=== PATIENT | male | born 1975 | race American Indian/Alaskan Native ===

== ENCOUNTER 2017-10-15 21:15 | Emergency (ER) | payer SELFPAY ==
[2017-10-15] MEDS ORDERED: NACL 0.9% 1000 ML 1,000 ML IV ONE (21:37)
--- NOTE | 2017-10-15 21:39 | Emergency Department Report ---
ED Altered Mental Status HPI - General Chief Complaint: Altered Mental Status Stated Complaint: POSSIBLE STROKE Time Seen by Provider: 10/15/17 21:36 Source: family Mode of arrival: Stretcher Limitations: Altered Mental Status, Physical Limitation - History of Present Illness Initial Comments: This is a 42-year-old gentleman who is not known to this provider, who is brought to the hospital with a friend for sudden onset of altered mental status. The friend reports that the patient's last known well time is not o' clock p.m. The friend does not know if the patient takes any prescription medications. He indicates the patient grabbed his head, and then became weak on the right-hand side. The patient presented with being nonverbal, and right arm weakness. Code stroke was called overhead, and fingerstick was noted to be 81. An emergent noncontrast CT scan of the brain was negative for bleed, and we obtained an emergency stroke neurology consultation, and the patient was seen in consultation with Dr. Laya Greenwood Pertinent deficits included a phasic, a right-sided facial droop, a left-sided gaze preference, and right arm weakness. In addition, the stroke neurologist called a probable left MCA sign. Overnight [facility] radiology then called back within the addendum, also corroborating a left-sided MCA sign. I was able to get the patient's on the phone, Mrs. Allyson Stephenson; . She indicated the patient has not had recent surgery, has not had bleeding, does not take anticoagulation. She reports a distant history of pulmonary embolus a few years ago. Risks, benefits, alternatives of TPA were discussed with the patient's , including the possibility of a fatal bleeding event. She gave informed consent over the phone, with nurse Danielle Davis as a witness, for TPA. She also gave informed consent for emergency angiography of the head and neck to possibly delineate the clot burden. I was personally present when TPA was pushed and administered. The consulting stroke neurologist recommends transfer to a facility that has neuro critical care capability. The case and CT scan of the brain were transmitted to the stroke neurology [facility], who accepted the patient as a transfer. The patient's gave informed consent over the phone for transfer. Complaint: altered mental status, decreased responsiveness -: Sudden, minutes(s), This evening (his friend who is accompanying him states it started at 9:00 PM) Severity: Unable to Determine Consistency of Symptoms: constant Associated Symptoms: other - Related Data Allergies Allergy/AdvReac Type Severity Reaction Status Date / Time No Known Allergies Allergy Verified 10/16/17 01:16 ED Review of Systems ROS: Stated complaint: POSSIBLE STROKE Other details as noted in HPI Comment: Unobtainable due to pts medical conditions ED Physical Exam - General Limitations: Altered Mental Status, Physical Limitation General appearance: lethargic - Head Head exam: Present: atraumatic, normocephalic - Eye Eye exam: Present: normal appearance, PERRL, other (there is a left-sided gaze preference) - ENT ENT exam: Present: normal exam, normal orophraynx, normal external ear exam - Neck Neck exam: Present: normal inspection. Absent: tenderness, meningismus, lymphadenopathy - Respiratory Respiratory exam: Present: normal lung sounds bilaterally. Absent: respiratory distress, wheezes, rales, rhonchi, stridor, chest wall tenderness, accessory muscle use, decreased breath sounds, prolonged expiratory - Cardiovascular Cardiovascular Exam: Present: regular rate, normal rhythm, normal heart sounds. Absent: bradycardia, tachycardia, irregular rhythm - GI/Abdominal GI/Abdominal exam: Present: soft, normal bowel sounds. Absent: distended, tenderness, guarding, rebound, rigid, pulsatile mass - Extremities Exam Extremities exam: Present: normal inspection, normal capillary refill. Absent: tenderness, pedal edema, joint swelling, calf tenderness - Back Exam Back exam: Present: normal inspection. Absent: full ROM, tenderness, CVA tenderness (R) - Neurological Exam Neurological exam: Present: altered, motor sensory deficit (patient has 5 out of 5 strength left upper extremity. Has 4 out of 5 strength left lower extremity. 4 out of 5 strength right lower extremity. One out of 5 strength right upper extremity), other (unable to assess sensation). Absent: CN II-XII intact (there is a right-sided facial droop. This left-sided gaze preference. Unable to assess V1, V2, V3. Patient does not follow commands, therefore cannot assess cranial nerve XII. Patient is able to hear.) - Psychiatric Psychiatric exam: Present: other (patient is nonverbal) - Skin Skin exam: Present: dry - Assessment Assessment Interval: Baseline - Level of Consciousness 1a. Level of Consciousness: not alert, rep stimuli - LOC Questions 1b. LOC Questions: answers no questions correctly - LOC Command 1c. LOC Commands: performs no tasks correctly - Best Gaze 2. Best Gaze: partial gaze palsy - Visual 3. Visual: no visual loss (Unable to assess) - Facial Palsy 4. Facial Palsy: partial paralysis - Motor Arm 5b. Motor Arm Right: some gravity effort 5a. Motor Arm Left: some gravity effort - Motor Leg 6a. Motor Leg Left: some gravity effort 6b. Motor Leg Right: some gravity effort - Limb Ataxia 7. Limb Ataxia: amputation - Sensory 8. Sensory: severe/total sensory loss - Best Language 9. Best Language: mute/global aphasia - Dysarthria 10. Dysarthria: intubated or other barrier - Extinction and Inattention 11. Extinction/Inattention: profound inattention ED Course Vital Signs 10/15/17 10/15/17 10/15/17 21:20 21:34 21:36 Pulse Rate 90 90 Respiratory 16 17 Rate Blood Pressure 120/81 120/81 O2 Sat by Pulse 90 96 Oximetry 10/15/17 10/15/17 10/15/17 21:40 21:45 21:50 Pulse Rate 87 84 86 Respiratory 17 17 16 Rate Blood Pressure 130/86 131/88 131/88 O2 Sat by Pulse 97 95 93 Oximetry 10/15/17 10/15/17 10/15/17 21:56 22:00 22:06 Pulse Rate 87 87 84 Respiratory 18 14 13 Rate Blood Pressure 131/88 131/88 131/92 O2 Sat by Pulse 96 95 98 Oximetry 10/15/17 10/15/17 10/15/17 22:10 22:11 22:15 Pulse Rate 84 83 Respiratory 12 18 Rate Blood Pressure 131/92 131/92 O2 Sat by Pulse 98 100 Oximetry 10/15/17 10/15/17 10/15/17 22:16 22:21 22:25 Pulse Rate 85 86 87 Respiratory 13 14 12 Rate Blood Pressure 131/92 124/84 131/84 O2 Sat by Pulse 98 99 100 Oximetry 10/15/17 10/15/17 10/15/17 22:30 22:35 22:40 Pulse Rate 88 87 87 Respiratory 27 H 18 19 Rate Blood Pressure 140/87 133/86 135/88 O2 Sat by Pulse 100 98 99 Oximetry 10/15/17 10/15/17 10/15/17 22:45 22:51 22:55 Pulse Rate 88 90 88 Respiratory 18 22 11 L Rate Blood Pressure 134/89 132/80 139/95 O2 Sat by Pulse 99 100 Oximetry 10/15/17 10/15/17 23:00 23:07 Pulse Rate 90 Respiratory 12 Rate Blood Pressure 131/87 131/87 O2 Sat by Pulse 99 87 Oximetry - Reevaluation(s) Reevaluation #1: 10/15/17 23:02 No change in neurologic status. Awaiting transport to [place]. - Lab Data Result diagrams: 10/15/17 21:51 10/15/17 21:51 Lab Results 10/15/17 10/15/17 10/15/17 Range/Units 21:51 21:51 21:51 WBC 5.7 (4.5-11.0) K/mm3 RBC 4.41 (3.65-5.03) M/mm3 Hgb 13.0 (11.8-15.2) gm/dl Hct 37.8 (35.5-45.6) % MCV 86 (84-94) fl MCH 30 (28-32) pg MCHC 35 H (32-34) % RDW 14.0 (13.2-15.2) % Plt Count 190 (140-440) K/mm3 Lymph % (Auto) 30.4 (13.4-35.0) % Angelina % (Auto) 8.0 H (0.0-7.3) % Eos % (Auto) 1.3 (0.0-4.3) % Baso % (Auto) 1.9 H (0.0-1.8) % Lymph # 1.7 (1.2-5.4) K/mm3 Angelina # 0.5 (0.0-0.8) K/mm3 Eos # 0.1 (0.0-0.4) K/mm3 Baso # 0.1 (0.0-0.1) K/mm3 Seg Neutrophils % 58.4 (40.0-70.0) % Seg Neutrophils # 3.3 (1.8-7.7) K/mm3 PT 13.3 (12.2-14.9) Sec. INR 0.96 (0.87-1.13) APTT 22.4 L (24.2-36.6) Sec. Thrombin Time (15.1-19.6) Sec. Sodium 140 (137-145) mmol/L Potassium 3.7 (3.6-5.0) mmol/L Chloride 103.1 (98-107) mmol/L Carbon Dioxide 22 (22-30) mmol/L Anion Gap 19 mmol/L BUN 17 (9-20) mg/dL Creatinine 1.0 (0.8-1.5) mg/dL Estimated GFR > 60 ml/min BUN/Creatinine Ratio 17 % Glucose 99 (75-100) mg/dL POC Glucose (70-105) Calcium 8.9 (8.4-10.2) mg/dL Total Creatine Kinase (55-170) units/L Troponin T < 0.010 (0.00-0.029) ng/mL Salicylates (2.8-20.0) mg/dL Urine Opiates Screen Urine Methadone Screen Acetaminophen (10.0-30.0) ug/mL Ur Barbiturates Screen Ur Phencyclidine Scrn Ur Amphetamines Screen U Benzodiazepines Scrn Urine Cocaine Screen U Marijuana (THC) Screen Drugs of Abuse Note Plasma/Serum Alcohol (0-0.07) % 10/15/17 10/15/17 10/15/17 Range/Units 21:51 21:51 21:51 WBC (4.5-11.0) K/mm3 RBC (3.65-5.03) M/mm3 Hgb (11.8-15.2) gm/dl Hct (35.5-45.6) % MCV (84-94) fl MCH (28-32) pg MCHC (32-34) % RDW (13.2-15.2) % Plt Count (140-440) K/mm3 Lymph % (Auto) (13.4-35.0) % Angelina % (Auto) (0.0-7.3) % Eos % (Auto) (0.0-4.3) % Baso % (Auto) (0.0-1.8) % Lymph # (1.2-5.4) K/mm3 Angelina # (0.0-0.8) K/mm3 Eos # (0.0-0.4) K/mm3 Baso # (0.0-0.1) K/mm3 Seg Neutrophils % (40.0-70.0) % Seg Neutrophils # (1.8-7.7) K/mm3 PT (12.2-14.9) Sec. INR (0.87-1.13) APTT (24.2-36.6) Sec. Thrombin Time 17.7 (15.1-19.6) Sec. Sodium (137-145) mmol/L Potassium (3.6-5.0) mmol/L Chloride (98-107) mmol/L Carbon Dioxide (22-30) mmol/L Anion Gap mmol/L BUN (9-20) mg/dL Creatinine (0.8-1.5) mg/dL Estimated GFR ml/min BUN/Creatinine Ratio % Glucose (75-100) mg/dL POC Glucose (70-105) Calcium (8.4-10.2) mg/dL Total Creatine Kinase (55-170) units/L Troponin T (0.00-0.029) ng/mL Salicylates < 0.3 L (2.8-20.0) mg/dL Urine Opiates Screen Urine Methadone Screen Acetaminophen (10.0-30.0) ug/mL Ur Barbiturates Screen Ur Phencyclidine Scrn Ur Amphetamines Screen U Benzodiazepines Scrn Urine Cocaine Screen U Marijuana (THC) Screen Drugs of Abuse Note Plasma/Serum Alcohol < 0.01 (0-0.07) % 10/15/17 10/15/17 10/15/17 Range/Units 21:51 21:51 22:05 WBC (4.5-11.0) K/mm3 RBC (3.65-5.03) M/mm3 Hgb (11.8-15.2) gm/dl Hct (35.5-45.6) % MCV (84-94) fl MCH (28-32) pg MCHC (32-34) % RDW (13.2-15.2) % Plt Count (140-440) K/mm3 Lymph % (Auto) (13.4-35.0) % Angelina % (Auto) (0.0-7.3) % Eos % (Auto) (0.0-4.3) % Baso % (Auto) (0.0-1.8) % Lymph # (1.2-5.4) K/mm3 Angelina # (0.0-0.8) K/mm3 Eos # (0.0-0.4) K/mm3 Baso # (0.0-0.1) K/mm3 Seg Neutrophils % (40.0-70.0) % Seg Neutrophils # (1.8-7.7) K/mm3 PT (12.2-14.9) Sec. INR (0.87-1.13) APTT (24.2-36.6) Sec. Thrombin Time (15.1-19.6) Sec. Sodium (137-145) mmol/L Potassium (3.6-5.0) mmol/L Chloride (98-107) mmol/L Carbon Dioxide (22-30) mmol/L Anion Gap mmol/L BUN (9-20) mg/dL Creatinine (0.8-1.5) mg/dL Estimated GFR ml/min BUN/Creatinine Ratio % Glucose (75-100) mg/dL POC Glucose 89 (70-105) Calcium (8.4-10.2) mg/dL Total Creatine Kinase 337 H (55-170) units/L Troponin T (0.00-0.029) ng/mL Salicylates (2.8-20.0) mg/dL Urine Opiates Screen Urine Methadone Screen Acetaminophen < 5.0 L (10.0-30.0) ug/mL Ur Barbiturates Screen Ur Phencyclidine Scrn Ur Amphetamines Screen U Benzodiazepines Scrn Urine Cocaine Screen U Marijuana (THC) Screen Drugs of Abuse Note Plasma/Serum Alcohol (0-0.07) % 10/15/17 Range/Units 22:29 WBC (4.5-11.0) K/mm3 RBC (3.65-5.03) M/mm3 Hgb (11.8-15.2) gm/dl Hct (35.5-45.6) % MCV (84-94) fl MCH (28-32) pg MCHC (32-34) % RDW (13.2-15.2) % Plt Count (140-440) K/mm3 Lymph % (Auto) (13.4-35.0) % Angelina % (Auto) (0.0-7.3) % Eos % (Auto) (0.0-4.3) % Baso % (Auto) (0.0-1.8) % Lymph # (1.2-5.4) K/mm3 Angelina # (0.0-0.8) K/mm3 Eos # (0.0-0.4) K/mm3 Baso # (0.0-0.1) K/mm3 Seg Neutrophils % (40.0-70.0) % Seg Neutrophils # (1.8-7.7) K/mm3 PT (12.2-14.9) Sec. INR (0.87-1.13) APTT (24.2-36.6) Sec. Thrombin Time (15.1-19.6) Sec. Sodium (137-145) mmol/L Potassium (3.6-5.0) mmol/L Chloride (98-107) mmol/L Carbon Dioxide (22-30) mmol/L Anion Gap mmol/L BUN (9-20) mg/dL Creatinine (0.8-1.5) mg/dL Estimated GFR ml/min BUN/Creatinine Ratio % Glucose (75-100) mg/dL POC Glucose (70-105) Calcium (8.4-10.2) mg/dL Total Creatine Kinase (55-170) units/L Troponin T (0.00-0.029) ng/mL Salicylates (2.8-20.0) mg/dL Urine Opiates Screen Presumptive negative Urine Methadone Screen Presumptive negative Acetaminophen (10.0-30.0) ug/mL Ur Barbiturates Screen Presumptive negative Ur Phencyclidine Scrn Presumptive negative Ur Amphetamines Screen Presumptive negative U Benzodiazepines Scrn Presumptive negative Urine Cocaine Screen Presumptive negative U Marijuana (THC) Screen Presumptive negative Drugs of Abuse Note Disclamer Plasma/Serum Alcohol (0-0.07) % - EKG Data -: EKG Interpreted by Pa - Radiology Data Radiology results: report reviewed, image reviewed - Core Measures Measure Exclusions: not indicated - NEXUS Criteria Focal neurological deficit present: Yes Midline spinal tenderness present: No Altered level of consciousness: No Intoxication present: No Distracting injury present: No (there is no trauma, therefore does not require cervical spine imaging) NEXUS results: C-Spine cannot be cleared clinically by these results. Imaging is required. Critical Care Time: Yes Critical care time in (mins) excluding proc time.: 60 Critical care attestation.: If time is entered above; I have spent that time in minutes in the direct care of this critically ill patient, excluding procedure time. ED Disposition Clinical Impression: CVA (cerebral vascular accident) Qualifiers: CVA mechanism: unspecified Qualified Code(s): I63.9 - Cerebral infarction, unspecified Disposition: DC/TX-02 SHRT-TRM GEN HOSP IP Is pt being admited?: No Does the pt Need Aspirin: No Condition: Critical Referrals: PRIMARY CARE, [Primary Care Provider] - 3-5 Days
--- NOTE | 2017-10-15 21:49 | Cat Scan Report ---
FINAL REPORT PROCEDURE: CT HEAD/BRAIN WO CON TECHNIQUE: Computerized tomography of the head was performed without contrast material. HISTORY: neuro deficits < 6hrs or sx present upon awakening COMPARISON: No prior studies are available for comparison. FINDINGS: Skull and scalp: Normal. Paranasal sinuses: Normal. Ventricles and subarachnoid spaces: Normal. Cerebrum: No evidence of hemorrhage, acute infarction or mass . Cerebellum and brainstem: No evidence of hemorrhage, acute infarction or mass. Vasculature: Normal. Comments: None. IMPRESSION: Normal Examination
[2017-10-15 22:03] LABS: Basophils # (Auto) 0.1 K/mm3 (0.0-0.1); Basophils % (Auto) 1.9 % (0.0-1.8); Eosinophils # (Auto) 0.1 K/mm3 (0.0-0.4); Eosinophils % (Auto) 1.3 % (0.0-4.3); Hematocrit 37.8 % (35.5-45.6); Lymphocytes # (Auto) 1.7 K/mm3 (1.2-5.4); Lymphocytes % (Auto) 30.4 % (13.4-35.0); Mean Corpuscular HGB Conc 35 % (32-34); Mean Corpuscular Hemoglobin 30 pg (28-32); Mean Corpuscular Volume 86 fl (84-94); Monocytes # (Auto) 0.5 K/mm3 (0.0-0.8); Platelet Count 190 K/mm3 (140-440); Red Blood Count 4.41 M/mm3 (3.65-5.03)
[2017-10-15] MEDS ORDERED: ACTIVASE IV ONE ×2 (22:07)
[2017-10-15] MEDS ORDERED: NACL 0.9% IV ONE (22:07)
[2017-10-15 22:13] LABS: INR 0.96 (0.87-1.13); Partial Thromboplastin Time 22.4 Sec. (24.2-36.6)
[2017-10-15 22:18] LABS: BUN/Creatinine Ratio 17; Blood Urea Nitrogen 17 mg/dL (9-20); Calcium 8.9 mg/dL (8.4-10.2); Hemolysis Index 21
[2017-10-15 23:10] LABS: Amphetamine Screen,Urine PRESUMPTIVE NEGATIVE; Benzodiazepines Screen,Urine PRESUMPTIVE NEGATIVE; Cannabinoid Screen,Urine PRESUMPTIVE NEGATIVE; Cocaine Screen,Urine PRESUMPTIVE NEGATIVE; Methadone Screen,Urine PRESUMPTIVE NEGATIVE; Opiate Screen,Urine PRESUMPTIVE NEGATIVE
[2017-10-15 23:21] VITALS: BP 131/87
[2017-10-16] MEDS ORDERED: ACTIVASE ONE (01:21)
== END 2017-10-15 23:10 | disposition short-term general hospital (02) ==
LOC: ED 21:15
DX: I63.9 Cerebral infarction, unspecified (principal)
CPT/HCPCS: 36415; 37212; 51702; 70450; 80048; 80307; 82550; 82962; 84484; 85025; 85610; 85670; 85730; 93005; 93010; 96361; 96374; 99291; G0480; J2997; J7030; 80320